=== PATIENT | female | born 2000 | race Caucasian/White ===

== ENCOUNTER 2022-06-30 21:11 | Emergency (ER) | payer BC ==
[~2022-06-30] VITALS: Ht 157.5 cm; Wt 54.5 kg
[2022-06-30 21:25] VITALS: TEMP 101.3
[2022-06-30 22:19] LABS: STREP SCREEN NEGATIVE
[2022-06-30 22:33] LABS: MONOSCREEN NEGATIVE
[2022-06-30] MEDS ORDERED: FLONASEALLERGY NS (22:59)
[2022-06-30] MEDS ORDERED: AMOXICILLIN 8751 TAB PO (22:59)
[2022-06-30 23:26] VITALS: BP 115/77; PULSE 66
== END 2022-06-30 23:26 | disposition home or self-care (01) ==
LOC: COL.ER 21:11 → EDSEX 21:13 → COL.ER 21:13
PROVIDERS: Emergency Medicine
DX: J01.90 Acute sinusitis, unspecified (principal); J02.9 Acute pharyngitis, unspecified; Z28.310 Unvaccinated for COVID-19
CPT/HCPCS: J8540